=== PATIENT | male | born 1955 | race Caucasian/White ===

== ENCOUNTER 2017-02-14 15:29 | Inpatient (IN) | payer OTHER ==
[~2017-02-14] VITALS: Ht 177.8 cm; Wt 83.7 kg
[2017-02-14 17:29] LABS: BASOPHIL % 0.5 % (0-2); PLATELET COUNT 252 x10^3mcL (130-400); RED CELL DISTRIBUTION WIDTH 12.6 % (11.5-14.5)
[2017-02-14 17:45] LABS: CALCIUM 8.8 mg/dL (8.5-10.1); CARBON DIOXIDE 28.8 mmol/L (21-32); CHLORIDE SERUM 103 mmol/L (98-107); CREATININE SERUM 1.6 mg/dL (0.7-1.3); GFR1 47 mL/min; GLUCOSE SERUM 146 mg/dL (74-106); POTASSIUM SERUM 4.1 mmol/L (3.5-5.1); SODIUM SERUM 138 mmol/L (136-145)
[2017-02-14 17:46] LABS: ALBUMIN 3.6 g/dL (3.4-5.0); ALKALINE PHOSPHATASE 97 U/L (46-116); ALT/SGPT 28 U/L (16-63); AST/SGOT 25 U/L (15-37); BILIRUBIN TOTAL 0.7 mg/dL (0.20-1.00); HDL CHOLESTEROL 45 mg/dL (40-60); LIPASE 120 IU/L (73-393); TOTAL PROTEIN, SERUM 7.4 g/dL (6.4-8.2)
[2017-02-14 17:47] LABS: CHOLESTEROL 279 mg/dL (<200); CHOLESTEROL/HDL RATIO 6.2; TRIGLYCERIDES 561 mg/dL (<150)
[2017-02-14 17:54] LABS: T3 TOTAL 1.14 ng/mL
[2017-02-14 18:12] LABS: FREE THYROXINE INDEX 2.2 ug/dL (1.4-4.5); T4(THYROXINE) 6.4 ug/dL (4.7-13.3)
[2017-02-14 18:43] LABS: FREE T4 0.66 ng/dL (0.76-1.46)
[2017-02-14 20:48] LABS: microscopic required? NO
[2017-02-14 20:53] LABS: UA SPECIFIC GRAVITY 1.025 (1.005-1.035); urine erythrocyte NEGATIVE (NEGATIVE)
[2017-02-14 23:32] VITALS: BP 162/101
[2017-02-15 06:17] VITALS: BP 174/84
[2017-02-15 06:21] LABS: BASOPHIL % 0.6 % (0-2); PLATELET COUNT 232 x10^3mcL (130-400); RED CELL DISTRIBUTION WIDTH 12.6 % (11.5-14.5)
[2017-02-15 06:52] LABS: CALCIUM 8.5 mg/dL (8.5-10.1); CARBON DIOXIDE 25.4 mmol/L (21-32); CHLORIDE SERUM 104 mmol/L (98-107); CREATININE SERUM 0.9 mg/dL (0.7-1.3); GFR1 > 60 mL/min; GLUCOSE SERUM 105 mg/dL (74-106); PHOSPHOROUS 2.8 mg/dL (2.5-4.9); SODIUM SERUM 137 mmol/L (136-145)
[2017-02-15 10:45] VITALS: BP 128/87
[2017-02-15 11:21] VITALS: BP 128/87
[2017-02-15 15:40] VITALS: Ht 177.8 cm; Wt 83.7 kg
[2017-02-15 17:03] VITALS: BP 139/83
[2017-02-15 18:21] VITALS: BP 118/80
[2017-02-15 21:26] VITALS: BP 125/81
[2017-02-16 05:32] VITALS: BP 115/80
[2017-02-16 06:05] LABS: BASOPHIL % 0.7 % (0-2); PLATELET COUNT 232 x10^3mcL (130-400); RED CELL DISTRIBUTION WIDTH 12.9 % (11.5-14.5)
[2017-02-16 06:30] LABS: CARBON DIOXIDE 25.8 mmol/L (21-32); CHLORIDE SERUM 103 mmol/L (98-107); CREATININE SERUM 0.8 mg/dL (0.7-1.3); GFR1 > 60 mL/min; GLUCOSE SERUM 121 mg/dL (74-106); POTASSIUM SERUM 4.4 mmol/L (3.5-5.1); SODIUM SERUM 135 mmol/L (136-145)
[2017-02-16 08:45] VITALS: BP 126/72
[2017-02-16 10:50] VITALS: BP 102/66
[2017-02-16 14:00] VITALS: BP 108/73
[2017-02-16 17:17] VITALS: BP 108/76
[2017-02-16 22:23] VITALS: BP 116/79
[2017-02-17 06:13] LABS: BASOPHIL % 0.6 % (0-2); PLATELET COUNT 204 x10^3mcL (130-400); RED CELL DISTRIBUTION WIDTH 13.3 % (11.5-14.5)
[2017-02-17 06:36] VITALS: BP 118/75
[2017-02-17 06:55] LABS: CALCIUM 8.5 mg/dL (8.5-10.1); CARBON DIOXIDE 24.9 mmol/L (21-32); CHLORIDE SERUM 104 mmol/L (98-107); CREATININE SERUM 0.9 mg/dL (0.7-1.3); GFR1 > 60 mL/min; GLUCOSE SERUM 103 mg/dL (74-106); POTASSIUM SERUM 4.1 mmol/L (3.5-5.1); SODIUM SERUM 138 mmol/L (136-145)
[2017-02-17 10:00] VITALS: BP 128/78
[2017-02-17 14:00] VITALS: BP 120/72
[2017-02-17 19:01] VITALS: BP 119/69
[2017-02-17 21:32] VITALS: BP 121/81
[2017-02-18 05:57] VITALS: BP 112/73
[2017-02-18 06:18] LABS: BASOPHIL % 0.5 % (0-2); PLATELET COUNT 214 x10^3mcL (130-400)
[2017-02-18 06:22] LABS: CALCIUM 9.1 mg/dL (8.5-10.1); CARBON DIOXIDE 29.3 mmol/L (21-32); CHLORIDE SERUM 100 mmol/L (98-107); CREATININE SERUM 0.9 mg/dL (0.7-1.3); GFR1 > 60 mL/min; GLUCOSE SERUM 102 mg/dL (74-106); PHOSPHOROUS 4.7 mg/dL (2.5-4.9); POTASSIUM SERUM 4.4 mmol/L (3.5-5.1); SODIUM SERUM 137 mmol/L (136-145)
[2017-02-18 06:39] LABS: ALBUMIN 3.3 g/dL (3.4-5.0)
[2017-02-18] MEDS ORDERED: CLOPIDOGREL75 M1 PO (10:41)
[2017-02-18] MEDS ORDERED: LIPITOR80 MG PO (10:42)
[2017-02-18] MEDS ORDERED: METOPROLOL TART25 M1 PO (10:46)
[2017-02-18] MEDS ORDERED: ZES5 PO (10:46)
[2017-02-18] MEDS ORDERED: ECO81 PO (10:47)
[2017-02-18] MEDS ORDERED: THI100 PO (10:48)
[2017-02-18] MEDS ORDERED: ATI1 PO (10:49)
[2017-02-18] MEDS ORDERED: FOL1 PO (10:49)
[2017-02-18 10:59] VITALS: BP 129/73
[2017-02-18 14:37] VITALS: BP 138/63
[2017-02-18 18:24] VITALS: BP 105/74
[2017-02-18 21:04] VITALS: BP 103/65
[2017-02-19 09:50] VITALS: BP 101/65
[2017-02-19 13:04] VITALS: BP 100/60
[2017-02-19 17:19] VITALS: BP 93/60
[2017-02-19 21:37] VITALS: BP 101/66
[2017-02-20 05:40] VITALS: BP 101/58
[2017-02-20 07:26] LABS: BASOPHIL % 0.4 % (0-2); PLATELET COUNT 245 x10^3mcL (130-400); RED CELL DISTRIBUTION WIDTH 12.9 % (11.5-14.5)
[2017-02-20 07:28] LABS: ALBUMIN 3.4 g/dL (3.4-5.0); CALCIUM 8.9 mg/dL (8.5-10.1); CARBON DIOXIDE 24.7 mmol/L (21-32); CHLORIDE SERUM 98 mmol/L (98-107); CREATININE SERUM 0.8 mg/dL (0.7-1.3); GFR1 > 60 mL/min; GLUCOSE SERUM 104 mg/dL (74-106); MAGNESIUM 2.1 mg/dL (1.8-2.4); PHOSPHOROUS 3.6 mg/dL (2.5-4.9); POTASSIUM SERUM 4.5 mmol/L (3.5-5.1); SODIUM SERUM 133 mmol/L (136-145)
[2017-02-20 09:42] VITALS: BP 116/74
[2017-02-20 13:12] VITALS: BP 118/68
[2017-02-20 13:23] VITALS: BP 116/74
== END 2017-02-20 15:22 | disposition short-term general hospital (02) | DRG 280 ==
LOC: ED 15:29 → DU 21:29
PROVIDERS: Family Medicine; Internal Medicine Interventional Cardiology; Specialist; ADMIT Family Medicine
PROC: B2151ZZ Fluoroscopy of Left Heart using Low Osmolar Contrast (ICD-10-PCS; 2017-02-16)
PROC: B2111ZZ Fluoroscopy of Multiple Coronary Arteries using Low Osmolar Contrast (ICD-10-PCS; 2017-02-16)
PROC: 4A023N7 Measurement of Cardiac Sampling and Pressure, Left Heart, Percutaneous Approach (ICD-10-PCS; principal; 2017-02-16 08:30)
DX: I21.4 Non-ST elevation (NSTEMI) myocardial infarction (principal); N17.0 Acute kidney failure with tubular necrosis; E87.1 Hypo-osmolality and hyponatremia; I25.118 Atherosclerotic heart disease of native coronary artery with other forms of angina pectoris; F25.1 Schizoaffective disorder, depressive type; F43.21 Adjustment disorder with depressed mood; F10.20 Alcohol dependence, uncomplicated; R73.03 Prediabetes; K76.0 Fatty (change of) liver, not elsewhere classified; K70.9 Alcoholic liver disease, unspecified; E78.2 Mixed hyperlipidemia; F41.9 Anxiety disorder, unspecified; F15.21 Other stimulant dependence, in remission; Z59.0 Homelessness
CPT/HCPCS: CLHCL; 82962; 83880; 84439; C1769; C1887; C1894; G0480; J0360; J1642; J1644; J2001; J2060; J2250; J2270; J3010; J3490; J7030; J7040; Q0092; Q9967

== ENCOUNTER 2018-05-10 13:43 | Emergency (ER) | payer MEDICAID ==
[~2018-05-10] VITALS: Ht 172.7 cm; Wt 83.9 kg
[~2018-05-10 13:43] MED LIST: ATI1 PO; CLOPIDOGREL75 M1 PO; ECO81 PO; FOL1 PO; LIPITOR80 MG PO; METOPROLOL TART25 M1 PO; THI100 PO; ZES5 PO
[2018-05-10 13:49] VITALS: Ht 172.7 cm; Wt 83.9 kg
[2018-05-10 14:34] LABS: BASOPHIL % 0.9 % (0-2); PLATELET COUNT 230 x10^3mcL (130-400); RED CELL DISTRIBUTION WIDTH 14.4 % (11.5-14.5)
[2018-05-10 14:48] LABS: CALCIUM 9.2 mg/dL (8.5-10.1); CARBON DIOXIDE 23.2 mmol/L (21-32); CHLORIDE SERUM 99 mmol/L (98-107); CREATININE SERUM 0.8 mg/dL (0.7-1.3); GFR1 > 60 mL/min; GLUCOSE SERUM 107 mg/dL (74-106); POTASSIUM SERUM 4.2 mmol/L (3.5-5.1); SODIUM SERUM 134 mmol/L (136-145)
[2018-05-10 16:45] VITALS: BP 159/86
== END 2018-05-10 16:45 | disposition home or self-care (01) ==
LOC: ED 13:43
PROVIDERS: Emergency Medicine
DX: T50.995A Adverse effect of other drugs, medicaments and biological substances, initial encounter (principal); R42 Dizziness and giddiness; R11.0 Nausea; F10.20 Alcohol dependence, uncomplicated; I10 Essential (primary) hypertension; Y92.89 Other specified places as the place of occurrence of the external cause
CPT/HCPCS: J2405; J3411; J3475; J3490; J7030; Q0092